=== PATIENT | male | born 1985 | race Caucasian/White ===

== ENCOUNTER 2021-06-30 00:38 | Emergency (ER) | payer BC ==
[2021-06-30] MEDS ORDERED: diphenhydrAMINE 50 MG/ML VIAL ONE (01:03)
[2021-06-30] MEDS ORDERED: methylPREDNISolone Sod Succ/PF 125 MG/2 ML VIAL ONE (01:03)
[2021-06-30] MEDS ORDERED: Famotidine/PF 20 mg/2ml Vial ONE (01:04)
== END 2021-06-30 02:19 | disposition home or self-care (01) ==
LOC: ERS 00:38
DX: L50.0 Allergic urticaria (principal); M10.9 Gout, unspecified; E78.5 Hyperlipidemia, unspecified
CPT/HCPCS: 96374; 96375; J1200; J2930; S0028